=== PATIENT | female | born 2000 | race Caucasian/White ===

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

== ENCOUNTER 2019-07-20 16:53 | Emergency (ER) | payer OTHER ==
[2019-07-20 17:36] VITALS: BP 101/65
[2019-07-20] MEDS ORDERED: Albuterol 2.5 MG/3 ML NEB.SOL* (0.083%) INH ONE (18:23)
--- NOTE | 2019-07-20 18:24 | UC ---
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 She was seen at the [facility] on 07/14 and diagnosed with a respiratory illness. She has a hx of exercise induced asthma, and has tried use of albuterol up to 2x per day without relief of symptoms. She has had 3 episodes of emesis, mostly related to long bouts of coughing. No diarrhea. She is uncertain if this is related to her eating wings at [employer] which might have made other friends ill as well. - History of Current Complaint Chief Complaint: UCGeneralIllness Stated Complaint: COUGH,CONGESTION,ACHY,VOMITTING Time Seen by Provider: 07/20/19 18:19 Hx Obtained From: Patient Hx Last Menstrual Period: 07/14/19 Onset/Duration: Gradual Onset, Lasting Days - 10 Timing: Minutes Initial Severity: Moderate Current Severity: Moderate Pain Intensity: 4 Location/Character: Cough (Nonproductive) Aggravating Factor(s): Exertion Alleviating Factor(s): Nothing Associated Signs and Symptoms: Positive: URI - Risk Factors Status Asthmaticus Risk Factors: Negative - Allergy/Home Medications Allergies/Adverse Reactions: Allergies Allergy/AdvReac Type Severity Reaction Status Date / Time No Known Allergies Allergy Verified 07/20/19 17:28 Home Medications: Home Medications Norgestimate-Ethinyl Estradiol [Tri-Sprintec Tablet] 1 tab PO DAILY 07/20/19 [ History Confirmed 07/20/19] guaiFENesin [Mucinex] 1 tab PO ONCE 07/20/19 [History Confirmed 07/20/19] PMH/Surg Hx/FS Hx/Imm Hx Previously Healthy: Yes Respiratory History: Asthma - exercise induced - Surgical History Surgical History: None - Family History Known Family History: Positive: Diabetes - Social History Occupation: Student Lives: With Family Alcohol Use: None Substance Use Type: None Smoking Status (MU): Never Smoked Tobacco Review of Systems All Other Systems Reviewed And Are Negative: Yes Constitutional: Positive: Fever - today is the first day of fever., Fatigue Eyes: Positive: Negative ENT: Positive: Sore Throat - early in the course of the illness, but no longer sore; no dysphagia.. Negative: Ear Ache, Sinus Congestion Respiratory: Positive: Shortness Of Breath, Cough Cardiovascular: Positive: Negative Gastrointestinal: Positive: Vomiting Is Patient Immunocompromised?: No Physical Exam Triage Information Reviewed: Yes Appearance: Well-Appearing, No Pain Distress Vital Signs: Initial Vital Signs Temp 99.1 F 07/20/19 17:30 Pulse 105 07/20/19 17:30 Resp 16 07/20/19 17:30 BP 101/65 07/20/19 17:30 Pulse Ox 100 07/20/19 17:30 ENT: Positive: Pharyngeal erythema, Tonsillar swelling - tonsils mildly enlarged.. Negative: Tonsillar exudate Neck: Positive: Supple, Nontender, No Lymphadenopathy Respiratory Exam: Other - frequent harsh cough, with one episode of hyperventilation. This resolved later in the visit. Respiratory: Positive: No respiratory distress, No accessory muscle use, Expiration - mildly prolonged. Cardiovascular: Positive: RRR, No Murmur Abdominal Exam: Normal Abdomen Description: Positive: Nontender, No Organomegaly, Soft Musculoskeletal Exam: Normal Neurological Exam: Normal Psychological Exam: Normal Skin Exam: Normal Re-Evaluation - Re-Evaluation First Eval Re-Evaluation Time: 18:55 - decreased coughing Change: Improved Asthma Course/Dx - Course Course Of Treatment: Prednisone treatment for reactive airways, continue albuterol as needed. - Differential Dx/Diagnosis Differential Diagnosis/HQI/PQRI: Acute Asthma, Bronchitis, Reactive Airway Disease Provider Diagnosis: Reactive airway disease Discharge ED - Sign-Out/Discharge Documenting (check all that apply): Patient Departure All imaging exams completed and their final reports reviewed: No Studies - Discharge Plan Condition: Stable Disposition: HOME Prescriptions: predniSONE [Prednisone 20 MG TAB] 40 mg PO DAILY #8 tablet predniSONE [Prednisone 20 MG TAB] 40 mg PO DAILY #8 tablet predniSONE TAB* [Deltasone 10 MG TAB*] 4 tab PO DAILY #16 tab Patient Education Materials: Reactive Airways Disease (ED) Referrals: No Primary Care Phys,NOPCP [Primary Care Provider] - Additional Instructions: Prednisone has been prescribed to decrease the airway inflammation which is triggering your cough. Take the first dose tonight with food, suggest soup or yogurt or toast. for cough, you might use over the counter Delsym OR you might use Zarbee's, a homeopathic treatment for cough, available at most pharmacies. Sip warm fluids frequently to ease your throat irritation. - Billing Disposition and Condition Condition: STABLE Disposition: Home
[2019-07-20] MEDS ORDERED: predniSONE TAB* 20 MG PO ONE (19:02)
== END 2019-07-20 19:30 | disposition home or self-care (01) ==
LOC: UCCORT 16:53
DX: J45.998 Other asthma (principal); R11.10 Vomiting, unspecified
CPT/HCPCS: 99213; G0463; J7512

== ENCOUNTER 2019-08-01 20:36 | Emergency (ER) | payer OTHER ==
[2019-08-01 20:49] VITALS: BP 108/72
--- NOTE | 2019-08-01 20:51 | UC ---
Respiratory Complaint HPI - HPI Summary HPI Summary: Patient is 19 year old female , who present today to the urgent care for reevaluation for her cough . She reports that she was seen here on 07/20/19 for cough and hoarse voice and prior to that she was seen at her [facility] on 07/14/19. She was diagnosed with reactive airway disease and was given prednisone. After which she went to see her primary care doctor in [place] and was given 5 day course of an antibiotic(she is not sure of the name but likely azithromycin) , her symptoms have resolved since except for the lingering cough. Last night her cough got worse and she started having right-sided lateral chest pain. Cough is nonproductive. It is significantly painful to cough every time. She is not taking any medications at this time. She has a history of asthma for which she takes albuterol as needed - History of Current Complaint Stated Complaint: SHORTNESS OF BREATH Time Seen by Provider: 08/01/19 20:38 Hx Obtained From: Patient Hx Last Menstrual Period: 07/18/19 ?: No - Allergies/Home Medications Allergies/Adverse Reactions: Allergies Allergy/AdvReac Type Severity Reaction Status Date / Time No Known Allergies Allergy Verified 08/01/19 20:42 Home Medications: Home Medications Albuterol HFA INHALER* [Ventolin HFA Inhaler*] 1 - 2 puff INH Q4H PRN 08/01/19 [ History Confirmed 08/01/19] Ibuprofen TAB* [Advil TAB*] 400 mg PO Q6H PRN 08/01/19 [History Confirmed ] PMH/Surg Hx/FS Hx/Imm Hx - Additional Past Medical History Additional PMH: Past Medical History : Asthma on albuterol inhaler Past Surgical History: No Past History of Procedure Family History : non contributory Social History : No alcohol, non smoker, no drug use. Student at [employer] Previously Healthy: Yes - Surgical History Surgical History: None - Family History Known Family History: Positive: Hypertension, Diabetes, Non-Contributory - Social History Alcohol Use: None Substance Use Type: None Smoking Status (MU): Never Smoked Tobacco Review of Systems All Other Systems Reviewed And Are Negative: Yes Constitutional: Positive: Negative. Negative: Fever Skin: Positive: Negative Eyes: Positive: Negative ENT: Positive: Negative Respiratory: Positive: Shortness Of Breath, Cough - Persistent Cardiovascular: Positive: Chest Pain - Pleuritic Gastrointestinal: Positive: Negative Genitourinary: Positive: Negative Motor: Positive: Negative Neurovascular: Positive: Negative Musculoskeletal: Positive: Negative Neurological: Positive: Negative Psychological: Positive: Negative Is Patient Immunocompromised?: No Physical Exam - Summary Physical Exam Summary: Physical Exam: Const: Appears well. No signs of apparent distress present. Alert and oriented x 3. Clutches her chest when she coughs due to pain Musculo: Walks with a normal gait. Head/Face: Atraumatic, normocephalic on inspection. Eyes: EOMI and PERRLA in both eyes. Conjunctivae clear. No discharge noted ENT: Hearing normal, Chest: Tenderness to palpation at the ribs on the lateral aspect- fifth and the sixth rib. Respiratory: poor effort . Lungs clear to auscultation bilaterally, no wheezing , rhonchi or rales noted . CVS: Regular rate and Rhythm, S1S2 normal , no murmurs identified. Extremities: Peripheral circulation is grossly normal. Pulses 2+ Abdomen : Soft non tender , nondistended , Bowel sounds present . No guarding , rebound tenderness or rigidity noted. Skin: No lesions or rash located on the upper extremities or on the lower extremities. Neuro: Cranial nerves II to XII intact, motor and sensory intact. DTR Intact bilaterally. Mood is normal. Affect is normal. Triage Information Reviewed: Yes Vital Signs Reviewed: Yes Diagnostics - Radiology No standard instances Radiology Interpretation Completed By: ED Physician - X-ray right rib and PA chest: Respiratory Course/Dx - Course Course Of Treatment: During the visit today, I suspect she might have a rib fracture secondary to prolonged persistent coughing for over a month as she has significant amount of pain and tenderness to palpation which is localized on the fifth and sixth rib. obtained x-ray of the right ribs and PA chest : no rib fracture. Right middle lobe infiltrate noted. X-ray chest PA-lateral view: Right middle lobe infiltrate She was given 1 dose of guaifenesin /codeine to control her coughing. Her chest x-ray demonstrate a right middle lobe infiltrate which could be a resolving infiltrate from her illness or a new finding but there is no prior x- rays to compare. Will treat with anitbiotics( augmentin and doxycycline) since she just completed Z-zoya. We discussed that x-rays can be negative but occult rib fracture cannot be completely ruled out and CT scan is more sensitive as a diagnostic modality to rule out any rib fracture and we discussed that she can be seen in the ER for further evaluation with CT scan since we don't have any CT scan here right now. I advised her that x-rays were done after 6 PM and no official radiology read is available at this time . X-rays will be read tomorrow morning by radiologist and if anything different, somebody will call you with the findings and further plan. She is leaving tomorrow to go home and advised her to follow with the primary care doctor. Patient expressed understanding . - Differential Dx/Diagnosis Differential Diagnosis/HQI/PQRI: Other - rib fracture 5th or 6th rib Provider Diagnosis: Right middle lobe pneumonia Discharge ED - Sign-Out/Discharge Documenting (check all that apply): Patient Departure All imaging exams completed and their final reports reviewed: No - Discharge Plan Condition: Stable Disposition: HOME Prescriptions: Amoxicillin/Clavulanate TAB* [Augmentin TAB 875*] 875 mg PO BID 10 Days #19 tab Benzonatate CAP* [Tessalon 100 MG CAP*] 100 mg PO TID PRN 10 Days #30 cap PRN Reason: Cough DOXYcycline CAP(*) [DOXYcycline 100MG CAP(*)] 100 mg PO BID 10 Days #19 cap Patient Education Materials: Pneumonia (ED) Referrals: No Primary Care Phys,NOPCP [Primary Care Provider] - 2 Days Additional Instructions: Please start taking the medication as prescribed to the pharmacy. Your x-rays were done after 6 PM and no official radiology read is available at this time . X-rays will be read tomorrow morning by radiologist and if anything different, somebody will call you with the findings and further plan. Pain controlled with Advil or Aleve for pain control Follow up with your primary care doctor in 1-2 days in [place] Return to Urgent care / ER if symptoms get worse. - Billing Disposition and Condition Condition: STABLE Disposition: Home
[2019-08-01] MEDS ORDERED: Benzonatate CAP* 100 MG PO ONE ×2 (21:02→21:40)
[2019-08-01] MEDS ORDERED: guaiFENesin/CODIENE 100mg/10mg 5 ML UDC PO ONE (21:05)
[2019-08-01] MEDS ORDERED: Amoxicillin/Clavulanate TAB* 875 MG PO ONE (21:37)
[2019-08-01] MEDS ORDERED: DOXYcycline CAP(*) 100 MG PO ONE (21:38)
== END 2019-08-01 21:53 | disposition home or self-care (01) ==
LOC: UCCORT 20:36
DX: J18.1 Lobar pneumonia, unspecified organism (principal); J45.909 Unspecified asthma, uncomplicated; Z79.899 Other long term (current) drug therapy
CPT/HCPCS: 71046; 99213; A9270-GY; G0463